=== PATIENT | male | born 1965 | race Caucasian/White ===

== ENCOUNTER 2016-07-14 22:19 | Emergency (ER) | payer BC, OTHER ==
[2016-07-14] MEDS ORDERED: Lidocaine 1% 20 ML MDV INJECT ONE (22:42)
[2016-07-14] MEDS ORDERED: Bacitracin Oint 1 GM U/D Packet TOP ONE (22:42)
[2016-07-14] MEDS ORDERED: Diphtheria,Pertussis(Acell),Tetanus Vaccine 0.5 ML Syringe IM ONE (22:42)
[2016-07-14] MEDS ORDERED: Acetaminophen/HYDROcodone 325-10 MG Tab PO ONE (23:01)
--- NOTE | 2016-07-14 23:02 | EDM.PDOC ---
ED HPI Skin/Rash - General Chief Complaint: Laceration Stated Complaint: PT HURT RT FOOT Time Seen by Provider: 07/14/16 22:25 Source: Reports: Patient History Limitations: Reports: No limitations - History of Present Illness INITIAL COMMENTS - FREE TEXT/NARRATIVE: HISTORY AND PHYSICAL: History of present illness: [51-year-old male status post right foot laceration. Patient was doing stuff barefoot when he stepped backwards onto the metal of the bed frame and it cut the distal aspect of the plantar surface of his foot. Patient's tetanus is not up-to-date. Patient does not feel a foreign body was possible in the setting no other Review of systems: As per history of present illness and below otherwise all systems reviewed and negative. Past medical history: As per history of present illness and as reviewed below otherwise noncontributory. Surgical history: As per history of present illness and as reviewed below otherwise noncontributory. Social history: No reported history of drug or alcohol abuse. Family history: As per history of present illness and as reviewed below otherwise noncontributory. Physical exam: HEENT: Normocephalic, atraumatic, pupils normal and symmetrical, supple neck, no meningismus, normal color Lungs: Normal and symmetrical chest wall excursion bilateral with no tachypnea or increased work of breathing, grossly normal chest exam Heart: No tachycardia in triage Abdomen: Normal-appearing, nondistended, no visible mass or asymmetry Pelvis: Normal-appearing Genitourinary: Deferred Rectal exam: Deferred Extremities: Atraumatic, normal use and range of motion, no visible evidence of gross neurovascular compromise .5 cm wound distal foot plantar aspect right sided. Oriented parallel to the long axis of the foot and extending to interdigital webspace. Neurovascularly intact distally some skin avulsion. Neuro: Awake, alert, oriented. Normal and appropriate mental status. Cranial nerves grossly unremarkable. Motor function normal. Nonfocal neurologic exam. Diagnostics: [X-ray right foot no fracture no foreign body visible] Therapeutics: [Procedure: Complex wound repair by JONG Arguelles Patient with complex wound with devitalized margins and some skin avulsion. requiring debridement] /closure. 1% lidocaine ejected. Good anesthesia. Wound irrigated extensively with sterile water under pressure. Closed with 4-0 Prolene 11 stitches by JONG Arguelles Patient tolerated well no complications hemostatic. No gross contamination or foreign body appreciated. Impression: [] Plan: [Patient can't complex laceration. Tetanus given. Antibiotic semester. Wound repaired. Patient tolerated well. X-ray unremarkable with no fracture or foreign body. Patient does wear possibility of occult foreign body. He is aware critical importance of finishing a box and followup with PCP for wound check and suture removal. Patient agrees with outpatient followup. Strict return precautions given] Definitive disposition and diagnosis as appropriate pending reevaluation and review of above. - Related Data Allergies Allergy/AdvReac Type Severity Reaction Status Date / Time No Known Allergies Allergy Verified 07/14/16 22:41 Home Meds: Ambulatory Orders Medication Instructions Recorded Confirmed Cephalexin [Keflex] 500 mg PO QID 5 Days 07/15/16 Past Medical History - Past Health History Medical/Surgical History: Denies Medical/Surgical History - Infectious Disease History Infectious Disease History: Reports: Chicken pox, Measles, Mumps Social & Family History - Family History Family Medical History: Noncontributory - Tobacco Use Smoking Status *Q: Never Smoker Second Hand Smoke Exposure: No - Caffeine Use Caffeine Use: Reports: Coffee Caffeine Use Comment: 4cups/day - Recreational Drug Use Recreational Drug Use: No ED ROS GENERAL - Review of Systems Review Of Systems: See Below (For history of present illness) ED EXAM, SKIN/RASH Exam: See Below (Per history of present illness) Course - Vital Signs Last Recorded V/S: Last Vital Signs Temp 36.4 C 07/14/16 22:35 Pulse 60 07/15/16 01:15 Resp 16 07/15/16 01:15 BP 136/84 07/15/16 01:15 Pulse Ox 97 07/15/16 01:15 - Orders/Labs/Meds Orders: Active Orders 24 hr Category Date Time Status Vaccines to be Administered [RC] PER UNIT ROUTINE Care 07/14/16 22:42 Active Foot 2V Rt [CR] Stat Exams 07/14/16 22:57 Taken Meds: Medications Discontinued Medications Generic Name Dose Route Start Last Admin Trade Name Freq PRN Reason Stop Dose Admin Hydrocodone Bitart/Acetaminophen 1 tab 07/14/16 23:01 07/14/16 23:15 [place] 325-10 Mg PO 07/14/16 23:02 1 tab ONETIME ONE Administration Bacitracin 1 dose 07/14/16 22:42 07/14/16 23:12 Bacitracin Oint 1 Gm TOP 07/14/16 22:43 1 dose ONETIME ONE Administration Cephalexin 500 mg 07/14/16 23:30 07/15/16 00:29 Keflex PO 07/14/16 23:31 500 mg ONETIME ONE Administration Diphtheria/Tetanus/Acell Pertussis 0.5 ml 07/14/16 22:42 07/14/16 23:11 Adacel IM 07/14/16 22:43 0.5 ml .ONCE ONE Administration Hydromorphone HCl 1 mg 07/15/16 00:59 07/15/16 01:06 Dilaudid IM 07/15/16 01:00 1 mg STAT STA Administration Lidocaine HCl 20 ml 07/14/16 22:42 07/14/16 23:12 Xylocaine 1% INJECT 07/14/16 22:43 20 ml ONETIME ONE Administration Departure - Departure Time of Disposition: 00:42 Disposition: Home, Self-Care 01 Condition: good Clinical Impression: Laceration of foot Prescriptions: Cephalexin [Keflex] 500 mg PO QID 5 Days Instructions: Laceration Care, Adult, [id number], Stitches, Rush, or Adhesive Wound Closure, [id number] Referrals: PCP,None [Primary Care Provider] - Forms: ED Department Discharge Additional Instructions: Your wound has been repaired with removable sutures. Because the wound was on your foot we are giving you some antibiotics to prevent infection. Finish these as prescribed take 800 mg of ibuprofen every 6 hours and then use [place] if needed for pain. Rest and elevate whenever possible. You may apply antibiotic ointment for the first 2 days. change dressings and wash carefully daily. BLot dry and then reapply a sterile dressing. Followup with your DrNuha in 2 days for wound check and 10 days for suture removal - My Orders Last 24 Hours: My Active Orders 07/14/16 22:42 Vaccines to be Administered [RC] PER UNIT ROUTINE 07/14/16 22:57 Foot 2V Rt [CR] Stat - Assessment/Plan Last 24 Hours: My Active Orders 07/14/16 22:42 Vaccines to be Administered [RC] PER UNIT ROUTINE 07/14/16 22:57 Foot 2V Rt [CR] Stat
[2016-07-14] MEDS ORDERED: Cephalexin 500 MG Cap PO ONE (23:30)
[2016-07-15] MEDS ORDERED: HYDROmorphone 1 MG/ML Syringe IM STA (00:59)
[2016-07-15 01:22] VITALS: BP 136/84
--- NOTE | 2016-07-15 12:30 | CR ---
EXAM DATE: 07/14/16 PATIENT'S AGE: 51 Patient: RUTH ZUNIGA Facility: [place], [place] Site . Site : [id number] Study: XRay Extremity Right foot [id number] 11:07:56 PM Ordering Physician: Yuri Pozo Final Report: INDICATION: Foot injury/laceration TECHNIQUE: Foot radiograph 2 views right COMPARISON: None FINDINGS: Bones: Alignment is normal. No acute fractures or aggressive bone lesions identified. Joint spaces: Unremarkable. No ankle effusion is seen. Soft tissues: Unremarkable. Kager`s fat pad is normal in appearance. The visualized Achilles` tendon is unremarkable. No radiopaque foreign bodies are seen. IMPRESSION: 1. No acute osseous injuries are noted. Dictated by: Adrian Owen MD @ 07/14/2016 23:10:12 (Electronic Signature) Report Signed by Proxy and Original Signed Document filed in the Medical Record. [facility]
== END 2016-07-15 01:15 | disposition home or self-care (01) ==
LOC: MW.ED 22:19
DX: S91.311A Laceration without foreign body, right foot, initial encounter (principal); Z23 Encounter for immunization; W45.8XXA Other foreign body or object entering through skin, initial encounter
CPT/HCPCS: 12002; 73620; 90471; 90715; 96372; 99283; A9270; J1170

== ENCOUNTER 2021-12-30 16:38 | Emergency (ER) | payer BC ==
[2021-12-30] MEDS ORDERED: ceFAZolin 2 GM in Premix Bag 1 BAG IV ONE (16:56)
[2021-12-30] MEDS ORDERED: Lidocaine 1% 5 ML VIAL INJECT ONE (17:49)
[2021-12-30] MEDS ORDERED: Cephalexin 500 MG Cap PO STA ×2 (17:54→18:44)
[2021-12-30] MEDS ORDERED: Cephalexin 500 MG Cap PO ONE (18:44)
[2021-12-30] MEDS ORDERED: Acetaminophen/HYDROcodone 325-5 MG Tab PO STA ×3 (18:44→18:45)
[2021-12-30 19:12] VITALS: BP 122/82; PULSE 70
== END 2021-12-30 19:12 | disposition home or self-care (01) ==
LOC: MW.ED 16:38
DX: S62.631B Displaced fracture of distal phalanx of left index finger, initial encounter for open fracture (principal); I10 Essential (primary) hypertension; E78.5 Hyperlipidemia, unspecified; Z20.822 Contact with and (suspected) exposure to COVID-19; Z79.899 Other long term (current) drug therapy; W27.0XXA Contact with workbench tool, initial encounter
CPT/HCPCS: 12002; 26755; 73120; 73130; 87635; 96365; 99283; A9270; J0690; 26605; 99284; U0002